=== PATIENT | female | born 2000 | race Hispanic/Latino ===

== ENCOUNTER 2020-07-06 08:55 | Outpatient (CLI) | payer OTHER ==
[2020-07-06 21:21] LABS: SARS-CoV-2 PCR by NAA Not Detected (NotDetected)
== END 2020-07-06 08:56 | disposition home or self-care (01) ==
LOC: CSHLAB 08:55
PROVIDERS: ATTEND Family Medicine
DX: Z20.822 Contact with and (suspected) exposure to COVID-19 (principal)
CPT/HCPCS: 87635; U0003; U0005

== ENCOUNTER 2020-07-09 14:10 | Day surgery (SDC) | payer OTHER ==
[2020-07-09] MEDS ORDERED: Iron Sucrose Complex 500 MG in Sodium Chloride 0.9% 250 ML 250 ML IVPB SCH (14:30)
[2020-07-09] MEDS ORDERED: diphenhydrAMINE 50 MG/ML VIAL IVP SCH (14:30)
[2020-07-09] MEDS ORDERED: Acetaminophen 500 MG TAB PO SCH (14:30)
[2020-07-09 14:38] VITALS: BMI 29.0
[2020-07-09 15:22] VITALS: BP 107/60; TEMP 97.5
== END 2020-07-09 20:42 | disposition home or self-care (01) ==
LOC: CSHLD/OP 14:10
PROVIDERS: ATTEND Family Medicine
DX: O99.013 Anemia complicating pregnancy, third trimester (principal); D50.9 Iron deficiency anemia, unspecified; O99.353 Diseases of the nervous system complicating pregnancy, third trimester; G40.909 Epilepsy, unspecified, not intractable, without status epilepticus; O09.293 Supervision of pregnancy with other poor reproductive or obstetric history, third trimester; Z3A.33 33 weeks gestation of pregnancy; Z79.899 Other long term (current) drug therapy
CPT/HCPCS: 96361; 96365; 96366; 99282; J1756; J7050